=== PATIENT | female | born 1990 | race Caucasian/White ===

== ENCOUNTER 2017-10-10 01:57 | Emergency (ER) | payer MEDICAID ==
[2017-10-10 02:54] LABS: AMPHETAMINE QUAL UR NONE DETECTED (NEG <=1000)
[2017-10-10 03:11] LABS: CARBON DIOXIDE 28.2 mmol/L (21-32); CHLORIDE SERUM 106 mmol/L (98-107); CREATININE SERUM 0.8 mg/dL (0.6-1.0); GFR1 > 60 mL/min; GLUCOSE SERUM 123 mg/dL (74-106); POTASSIUM SERUM 3.5 mmol/L (3.5-5.1); SODIUM SERUM 143 mmol/L (136-145)
[2017-10-10 03:12] LABS: BASOPHIL % 0.3 % (0-2); PLATELET COUNT 337 x10^3mcL (130-400); RED CELL DISTRIBUTION WIDTH 13.8 % (11.5-14.5)
[2017-10-10 03:23] LABS: ALBUMIN 4.1 g/dL (3.4-5.0); ALKALINE PHOSPHATASE 75 U/L (46-116); ALT/SGPT 23 U/L (14-59); AST/SGOT 22 U/L (15-37); BILIRUBIN TOTAL 0.32 mg/dL (0.20-1.00); TOTAL PROTEIN, SERUM 8.5 g/dL (6.4-8.2)
[2017-10-10 05:10] VITALS: BP 110/68
== END 2017-10-10 05:10 | disposition home or self-care (01) ==
LOC: ED 01:57
PROVIDERS: Emergency Medicine
DX: T65.891A Toxic effect of other specified substances, accidental (unintentional), initial encounter (principal); R11.10 Vomiting, unspecified; F43.10 Post-traumatic stress disorder, unspecified; F43.20 Adjustment disorder, unspecified; Y92.89 Other specified places as the place of occurrence of the external cause
CPT/HCPCS: 36415; G0480; J2765; Q0162